=== PATIENT | male | born 1955 | race Caucasian/White ===

== ENCOUNTER → 2020-09-23 09:08 | Outpatient (BNVA) | payer BC, SELFPAY | PROVIDERS: Family Provider Internal Medicine; PCP Internal Medicine; Visit Provider Internal Medicine | DX: Z00.00 Encounter for general adult medical examination without abnormal findings (principal) | CPT/HCPCS: 80053; 80061; 83036; 84403; 85025; G0103 ==

== ENCOUNTER 2021-06-01 14:04 | Outpatient (CLI) | payer MEDICARE, BC, SELFPAY ==
[2021-06-01 14:20] VITALS: BP 160/87; PULSE 65; RESP 16; O2SAT 96
[2021-06-01 16:00] VITALS: BP 111/71; BP 139/80; PULSE 60; PULSE 83; RESP 16; TEMP 36.6; O2SAT 96; O2SAT 98
--- NOTE | 2021-06-11 14:51 | DCPLANNER ---
mental health program manager had message that patient received the monoclonal antibody infusion. mental health program manager spoke with patient he stated that before the infusion he lost his sense of taste and smell, he had a fever, and he had a cough and he had a really really runny nose. Patient stated that after the infusion he is feeling really good. Patient stated that he still does not have a lot of energy, he has not had a fever, and he has had not had a runny nose after the infusion. Patient stated that he could tell a difference with in 24 hours of the infusion.
== END 2021-06-01 14:05 | disposition home or self-care (01) ==
PROVIDERS: PCP Internal Medicine; Visit Provider Nurse Practitioner Family
DX: U07.1 COVID-19 (principal)
CPT/HCPCS: 96365

== ENCOUNTER → 2021-10-20 09:46 | Outpatient (BNVA) | payer MEDICARE, SELFPAY | PROVIDERS: PCP Internal Medicine; Visit Provider Internal Medicine | DX: Z00.00 Encounter for general adult medical examination without abnormal findings (principal); E78.5 Hyperlipidemia, unspecified | CPT/HCPCS: 80053; 80061; 83036; 84153; 84403 ==

== ENCOUNTER → 2021-12-16 09:25 | Outpatient (BNVA) | payer MEDICARE, BC, SELFPAY | PROVIDERS: PCP Internal Medicine; Referring Provider Internal Medicine; Visit Provider Orthopaedic Surgery | DX: M25.511 Pain in right shoulder (principal) | CPT/HCPCS: 73030 ==

== ENCOUNTER 2021-12-22 06:00 | Outpatient (RCR) | payer MEDICARE, BC, SELFPAY | END 2022-01-21 23:59 | disposition home or self-care (01) | LOC: SPT 06:00 | PROVIDERS: PCP Internal Medicine; Referring Provider Orthopaedic Surgery; Visit Provider Orthopaedic Surgery | DX: M67.814 Other specified disorders of tendon, left shoulder (principal) | CPT/HCPCS: 97110; 97162 ==

== ENCOUNTER 2022-01-22 06:00 | Outpatient (RCR) | payer MEDICARE, BC, SELFPAY | END 2022-02-20 23:59 | disposition home or self-care (01) | LOC: SPT 06:00 | PROVIDERS: PCP Internal Medicine; Referring Provider Orthopaedic Surgery; Visit Provider Orthopaedic Surgery | DX: M67.814 Other specified disorders of tendon, left shoulder (principal); M25.512 Pain in left shoulder | CPT/HCPCS: 97110 ==

== ENCOUNTER → 2022-04-01 10:18 | Outpatient (BNVA) | payer MEDICARE, BC, SELFPAY | PROVIDERS: PCP Internal Medicine; Visit Provider Internal Medicine | DX: R60.9 Edema, unspecified (principal); I50.9 Heart failure, unspecified; E78.5 Hyperlipidemia, unspecified; Z78.9 Other specified health status; I10 Essential (primary) hypertension | CPT/HCPCS: 80053; 84443; 85025 ==

== ENCOUNTER 2022-04-22 09:02 | Outpatient (CLI) | payer MEDICARE, BC, SELFPAY ==
--- NOTE | 2022-04-22 09:30 | USCV_ITS ---
Yordan Sherwood Age: 67 Gender: M : 1955 Exam Date: 04/22/2022 09:22 Ordering Phys: Juan Corado MD Technologist: JAH Exam Location: [facility] – [place] Indication: CHRONIC HEART FAILURE BP: 140 / 78 HR: 63 Rhythm: Sinus Technical Quality: Adequate MEASUREMENTS (Male / Female) Normal Values 2D ECHO LV Diastolic Diameter PLAX 6.4 cm 4.2 - 5.9 / 3.9 - 5.3 cm LV Systolic Diameter PLAX 3.8 cm IVS Diastolic Thickness 1.4 cm 0.6 - 1.0 / 0.6 - 0.9 cm IVS Systolic Thickness 1.8 cm LVPW Diastolic Thickness 1.3 cm 0.6 - 1.0 / 0.6 - 0.9 cm LVPW Systolic Thickness 2.4 cm LVOT Diameter 2.0 cm LV Ejection Fraction 2D Teich 70.1 % LV Ejection Fraction MOD 2C 53.9 % LV Ejection Fraction 2C AL 54.7 % LA Diameter 3.5 cm LA Width 3.8 cm LA Height 5.7 cm RA Width 3.5 cm RA Height 4.4 cm Aorta at Sinotubular Diameter 2.3 cm M-MODE Aortic Annulus Diameter 2.9 cm LA Ao Ratio MM 1.1 MV E Point Septal Separation 0.8 cm DOPPLER AV Peak Velocity 159.0 cm/s LVOT Peak Velocity 93.0 cm/s AV Area Cont Eq vti 1.7 cm squared AV Area Cont Eq pk 1.9 cm squared MV Peak Velocity 85.0 cm/s MV Area PHT 2.9 cm squared Mitral E to A Ratio 0.8 MV E' Velocity 34.5 cm/s Mitral E to MV E' Ratio 7.6 Mitral E to LV E' Lateral Ratio 7.0 Mitral E to LV E' Septal Ratio 8.2 TR Peak Velocity 248.4 cm/s TR Peak Gradient 24.7 mmHg TR Mean Velocity 217.5 cm/s TR Mean Gradient 19.4 mmHg TR Velocity Time Integral 91.5 cm TV Peak E Velocity 65.0 cm/s Right Atrial Pressure 8.0 mmHg Pulmonary Artery Systolic Pressu 32.7 mmHg PV Peak Velocity 140.0 cm/s RV Acceleration Time 0.1 s RV Ejection Time 0.3 s RV AcT/ET 0.3 FINDINGS Left Ventricle Normal left ventricular size, systolic function and wall thickness, with no regional wall motion abnormalities. Grade I/IV diastolic dysfunction (abnormal relaxation filling pattern), normal to mildly elevated filling pressures. Abnormal septal motion consistent with conduction abnormality. Left ventricular ejection fraction is estimated at 55 %. Right Ventricle Normal right ventricular size and systolic function. Normal right ventricular systolic pressure. Right Atrium The right atrium is normal in size. Left Atrium The left atrium is normal in size. Mitral Valve Structurally normal mitral valve without significant stenosis or prolapse. There is no mitral regurgitation. Aortic Valve Structurally normal aortic valve without significant sclerosis or stenosis. There is no aortic regurgitation. Tricuspid Valve Structurally normal tricuspid valve. Trace tricuspid valve regurgitation. Pulmonic Valve Pulmonic valve not well visualized. Pericardium Normal pericardium without effusion. Aorta Normal ascending aorta dimension. IVC The inferior vena cava pulmonary and hepatic veins appear normal. CONCLUSIONS Normal left ventricular size, systolic function and wall thickness, with no regional wall motion abnormalities. Grade I/IV diastolic dysfunction (abnormal relaxation filling pattern), normal to mildly elevated filling pressures. Abnormal septal motion consistent with conduction abnormality. Left ventricular ejection fraction is estimated at 55 %. Dr. Jesus Ochoa MD (Electronically Signed) Final Date: 22 April 2022 10:48 Amended: 24 April 2022 11:54 C
== END 2022-04-22 09:03 | disposition home or self-care (01) ==
LOC: RAD 09:03
PROVIDERS: PCP Internal Medicine; Visit Provider Internal Medicine
DX: R60.9 Edema, unspecified (principal)
CPT/HCPCS: 93306

== ENCOUNTER 2022-07-21 06:00 | Outpatient (RCR) | payer MEDICARE, BC, SELFPAY | END 2022-07-23 23:59 | disposition home or self-care (01) | LOC: SPT 06:00 | PROVIDERS: PCP Internal Medicine; Visit Provider Orthopaedic Surgery | DX: Z47.89 Encounter for other orthopedic aftercare (principal) | CPT/HCPCS: 97110; 97162 ==

== ENCOUNTER 2022-07-24 06:00 | Outpatient (RCR) | payer MEDICARE, BC, SELFPAY | END 2022-08-23 23:59 | disposition home or self-care (01) | LOC: SPT 06:00 | PROVIDERS: PCP Internal Medicine; Visit Provider Orthopaedic Surgery | DX: Z47.89 Encounter for other orthopedic aftercare (principal) | CPT/HCPCS: 97110; G0283 ==

== ENCOUNTER 2022-08-24 06:00 | Outpatient (RCR) | payer MEDICARE, BC, SELFPAY | END 2022-09-21 16:38 | disposition home or self-care (01) | LOC: SPT 06:00 | PROVIDERS: PCP Internal Medicine; Visit Provider Orthopaedic Surgery | DX: Z47.89 Encounter for other orthopedic aftercare (principal) | CPT/HCPCS: 93798; 97032; 97110 ==

== ENCOUNTER 2023-02-21 06:00 | Outpatient (RCR) | payer MEDICARE, BC, SELFPAY | END 2023-03-23 23:59 | disposition home or self-care (01) | LOC: SPT 06:00 | PROVIDERS: Visit Provider Orthopaedic Surgery | DX: M22.2X1 Patellofemoral disorders, right knee (principal) | CPT/HCPCS: 97110; 97161 ==

== ENCOUNTER 2023-03-24 11:34 | Outpatient (RCR) | payer MEDICARE, BC, SELFPAY | END 2023-04-06 23:59 | disposition home or self-care (01) | LOC: SPT 11:34 | PROVIDERS: Visit Provider Orthopaedic Surgery | DX: M22.2X1 Patellofemoral disorders, right knee (principal) | CPT/HCPCS: 97110 ==

== ENCOUNTER → 2023-07-26 13:54 | Outpatient (BNVA) | payer MEDICARE, BC, SELFPAY | PROVIDERS: PCP Internal Medicine; Visit Provider Dermatology | DX: L82.1 Other seborrheic keratosis (principal); D22.5 Melanocytic nevi of trunk; L81.4 Other melanin hyperpigmentation; L57.8 Other skin changes due to chronic exposure to nonionizing radiation; L82.0 Inflamed seborrheic keratosis; L57.0 Actinic keratosis | CPT/HCPCS: 17000; 17110; 99213 ==

== ENCOUNTER 2023-08-01 08:40 | Outpatient (RCR) | payer MEDICARE, BC, SELFPAY | END 2023-08-23 23:59 | disposition home or self-care (01) | LOC: SPT 08:40 | PROVIDERS: PCP Internal Medicine; Visit Provider Orthopaedic Surgery | DX: Z98.890 Other specified postprocedural states (principal) | CPT/HCPCS: 97110; 97161; G0283; L1812 ==

== ENCOUNTER 2023-08-24 06:00 | Outpatient (RCR) | payer MEDICARE, BC, SELFPAY | END 2023-09-22 23:59 | disposition home or self-care (01) | LOC: SPT 06:00 | PROVIDERS: PCP Internal Medicine; Visit Provider Orthopaedic Surgery | DX: Z47.89 Encounter for other orthopedic aftercare (principal) | CPT/HCPCS: 97110; G0283 ==

== ENCOUNTER 2023-09-23 06:00 | Outpatient (RCR) | payer MEDICARE, BC, SELFPAY | END 2023-10-23 23:59 | disposition home or self-care (01) | LOC: SPT 06:00 | PROVIDERS: PCP Internal Medicine; Visit Provider Orthopaedic Surgery | DX: Z98.890 Other specified postprocedural states (principal) | CPT/HCPCS: 97110; G0283 ==

== ENCOUNTER 2023-10-26 09:26 | Outpatient (RCR) | payer MEDICARE, BC, SELFPAY | END 2023-11-23 23:59 | disposition home or self-care (01) | LOC: SPT 09:26 | PROVIDERS: PCP Internal Medicine; Visit Provider Orthopaedic Surgery | DX: M17.0 Bilateral primary osteoarthritis of knee (principal) | CPT/HCPCS: 97110; 97161 ==

== ENCOUNTER 2024-01-13 11:23 | Outpatient (RCR) | payer MEDICARE, BC, SELFPAY | END 2024-01-22 23:59 | disposition home or self-care (01) | LOC: SPT 11:23 | PROVIDERS: PCP Internal Medicine; Visit Provider Orthopaedic Surgery | DX: Z98.890 Other specified postprocedural states (principal); M25.562 Pain in left knee | CPT/HCPCS: 97110; 97161 ==

== ENCOUNTER 2024-01-23 06:00 | Outpatient (RCR) | payer MEDICARE, BC, SELFPAY | END 2024-02-21 23:59 | disposition home or self-care (01) | LOC: SPT 06:00 | PROVIDERS: PCP Internal Medicine; Visit Provider Orthopaedic Surgery | DX: Z47.89 Encounter for other orthopedic aftercare (principal); M25.562 Pain in left knee | CPT/HCPCS: 97110 ==

== ENCOUNTER 2024-06-07 08:22 | Outpatient (RCR) | payer MEDICARE, BC, SELFPAY | END 2024-06-23 23:59 | disposition home or self-care (01) | LOC: SPT 08:22 | PROVIDERS: PCP Internal Medicine; Visit Provider Orthopaedic Surgery | DX: M17.11 Unilateral primary osteoarthritis, right knee (principal); Z96.651 Presence of right artificial knee joint | CPT/HCPCS: 97110; 97161 ==

== ENCOUNTER 2024-06-24 06:00 | Outpatient (RCR) | payer MEDICARE, BC, SELFPAY | END 2024-07-23 23:59 | disposition home or self-care (01) | LOC: SPT 06:00 | PROVIDERS: PCP Internal Medicine; Visit Provider Orthopaedic Surgery | DX: Z47.1 Aftercare following joint replacement surgery (principal); Z96.651 Presence of right artificial knee joint; M17.11 Unilateral primary osteoarthritis, right knee | CPT/HCPCS: 97110; G0283 ==

== ENCOUNTER 2024-07-24 06:00 | Outpatient (RCR) | payer MEDICARE, BC, SELFPAY | END 2024-08-23 23:59 | disposition home or self-care (01) | LOC: SPT 06:00 | PROVIDERS: PCP Internal Medicine; Visit Provider Orthopaedic Surgery | DX: M17.11 Unilateral primary osteoarthritis, right knee (principal); Z96.651 Presence of right artificial knee joint | CPT/HCPCS: 97110; G0283 ==

== ENCOUNTER → 2024-07-26 13:17 | Outpatient (BNVA) | payer MEDICARE, BC, SELFPAY | PROVIDERS: PCP Internal Medicine; Visit Provider Nurse Practitioner Family | DX: L57.0 Actinic keratosis (principal); L81.4 Other melanin hyperpigmentation; D22.5 Melanocytic nevi of trunk; L82.1 Other seborrheic keratosis; S60.012A Contusion of left thumb without damage to nail, initial encounter; X58.XXXA Exposure to other specified factors, initial encounter; L57.8 Other skin changes due to chronic exposure to nonionizing radiation | CPT/HCPCS: 17000; 99213 ==

== ENCOUNTER 2024-08-24 06:00 | Outpatient (RCR) | payer MEDICARE, BC, SELFPAY | END 2024-09-22 23:59 | disposition home or self-care (01) | LOC: SPT 06:00 | PROVIDERS: PCP Internal Medicine; Visit Provider Orthopaedic Surgery | DX: M17.11 Unilateral primary osteoarthritis, right knee (principal); Z96.651 Presence of right artificial knee joint | CPT/HCPCS: 97110 ==

== ENCOUNTER 2024-09-23 06:00 | Outpatient (RCR) | payer MEDICARE, BC, SELFPAY | END 2024-10-10 23:59 | disposition home or self-care (01) | LOC: SPT 06:00 | PROVIDERS: PCP Internal Medicine; Visit Provider Orthopaedic Surgery | DX: M17.11 Unilateral primary osteoarthritis, right knee (principal); Z47.1 Aftercare following joint replacement surgery; Z96.651 Presence of right artificial knee joint | CPT/HCPCS: 97110 ==

== ENCOUNTER → 2025-02-28 13:27 | Outpatient (BNVA) | payer MEDICARE, OTHER, SELFPAY | PROVIDERS: PCP Internal Medicine; Visit Provider Internal Medicine Cardiovascular Disease | DX: R07.9 Chest pain, unspecified (principal); R06.02 Shortness of breath | CPT/HCPCS: 36415; 80048; 93005 ==

== ENCOUNTER 2025-04-05 06:17 | Outpatient (CLI) | payer MEDICARE, OTHER, SELFPAY ==
--- NOTE | 2025-04-05 06:15 | USCV_ITS ---
Yordan Sherwood Age: 70 Gender: M : 1955 Exam Date: 04/05/2025 06:33 Ordering Phys: Bobby Lamar MD ([email or web address]) Technologist: Onofre Castaneda Exam Location: [facility] – [place] Indication: chf, chest pain BP: 136 / 78 HR: 64 Rhythm: Sinus Technical Quality: Adequate MEASUREMENTS (Male / Female) Normal Values 2D ECHO LV Diastolic Diameter PLAX 4.5 cm 4.2 - 5.9 / 3.9 - 5.3 cm IVS Diastolic Thickness 1.4 cm 0.6 - 1.0 / 0.6 - 0.9 cm IVS Systolic Thickness 1.1 cm LVPW Diastolic Thickness 2.2 cm 0.6 - 1.0 / 0.6 - 0.9 cm LVPW Systolic Thickness 2.4 cm LVOT Diameter 2.0 cm LV Ejection Fraction 2D Teich 24.7 % LV Ejection Fraction MOD 4C 40.1 % LV Ejection Fraction MOD 2C 50.1 % LV Ejection Fraction 2C AL 48.7 % LA Diameter 3.5 cm RA Systolic Volume 4C AL 48.8 ml RA Systolic Volume 4C MOD 42.3 ml LA Sys Volume AL 43.8 cm cubed LA Sys Volume Index AL 19.1 cm cubed/m squared Aorta at Sinotubular Diameter 2.2 cm IVC Diameter 2.0 cm M-MODE LA Ao Ratio MM 1.5 AV Cusp Separation MM 1.3 cm DOPPLER AV Peak Velocity 146.3 cm/s LVOT Peak Velocity 87.0 cm/s AV Area Cont Eq vti 2.0 cm squared AV Area Cont Eq pk 2.0 cm squared MV Peak Velocity 84.0 cm/s MV Area PHT 5.1 cm squared Mitral E to A Ratio 0.7 TR Peak Velocity 329.0 cm/s TR Peak Gradient 43.3 mmHg TR Mean Velocity 259.0 cm/s TR Mean Gradient 28.9 mmHg TR Velocity Time Integral 77.7 cm PV Peak Velocity 175.3 cm/s FINDINGS Left Ventricle Moderately increased left ventricular cavity size. Moderately decreased left ventricular systolic function. Global left ventricular hypokinesis. Left ventricular ejection fraction is estimated at 40 %. Global left ventricular hypokinesis. Grade I/IV diastolic dysfunction (abnormal relaxation filling pattern), normal to mildly elevated filling pressures. Right Ventricle The right ventricle is normal in size and function. Right Atrium The right atrium is normal in size. Left Atrium The left atrium is normal in size. Mitral Valve Mildly thickened mitral valve. No mitral valve stenosis. Trace mitral valve regurgitation. Aortic Valve Moderate aortic valve calcification. No aortic valve stenosis. Trace aortic valve regurgitation. Tricuspid Valve Structurally normal tricuspid valve without significant stenosis or regurgitation. Pulmonary artery systolic pressure is normal. Pulmonic Valve Structurally normal pulmonic valve without significant stenosis. There is no pulmonic regurgitation. Pericardium Normal pericardium without effusion. Aorta Normal ascending aorta dimension. IVC The inferior vena cava appears normal. CONCLUSIONS Moderately increased left ventricular cavity size. Moderately decreased left ventricular systolic function. Global left ventricular hypokinesis. Left ventricular ejection fraction is estimated at 40 %. Global left ventricular hypokinesis. Grade I/IV diastolic dysfunction (abnormal relaxation filling pattern), normal to mildly elevated filling pressures. No significant valve abnormalities. There is no pericardial effusion. Right atrial pressure is around 5 mm of mercury. Bobby Lamar MD (Electronically Signed) Final Date: 25 April 2025 15:31 S
== END 2025-04-05 06:18 | disposition home or self-care (01) ==
PROVIDERS: PCP Internal Medicine; Visit Provider Internal Medicine Cardiovascular Disease
DX: I50.9 Heart failure, unspecified (principal); R07.9 Chest pain, unspecified; R06.02 Shortness of breath; R93.1 Abnormal findings on diagnostic imaging of heart and coronary circulation; I05.9 Rheumatic mitral valve disease, unspecified; I35.8 Other nonrheumatic aortic valve disorders
CPT/HCPCS: 93306

== ENCOUNTER → 2025-06-19 08:34 | Outpatient (BNVA) | payer MEDICARE, OTHER, SELFPAY | PROVIDERS: PCP Internal Medicine; Visit Provider Student in an Organized Health Care Education/Training Program | DX: M79.642 Pain in left hand (principal); M65.322 Trigger finger, left index finger; M65.332 Trigger finger, left middle finger; M65.342 Trigger finger, left ring finger | CPT/HCPCS: 73130; 99204 ==

== ENCOUNTER 2025-07-05 09:49 | Day surgery (SDC) | payer MEDICARE, OTHER, SELFPAY ==
[2025-07-05 10:03] VITALS: BMI 34.8
--- NOTE | 2025-07-05 10:19 | W.PM.OPSUD ---
Surgery/Procedure H&P Update DATE OF PROCEDURE: July 05, 2025 DATE H&P PERFORMED: 06/19/25 H&P UPDATE INFORMATION: I have reviewed H&P completed within last 30 days, I have examined patient prior to procedure and No changes to prior documentation PREOP DIAGNOSIS: Left index, middle, ring finger triggers PRIMARY INDICATION FOR PROCEDURE: Left index, middle, ring finger triggers PLANNED PROCEDURE: Operation Date: 07/05/25 11:30 Proposed Procedures p LEFT Index Finger, LEFT Middle Finger, LEFT Ring Finger Trigger Finger Release(Left) - Leo Calderon DO
--- NOTE | 2025-07-05 10:19 | ANES.PREANE2 ---
Pre-Anesthetic Assessment Height/Weight: Height 1.75 m Weight 107.048 kg O2 Del Method Room Air 07/05/25 10:03 Operation Date: 07/05/25 11:30 Proposed Procedures p LEFT Index Finger, LEFT Middle Finger, LEFT Ring Finger Trigger Finger Release(Left) - Leo Kvng, DO Familial anesthetic complications: None Was Beta Zahra taken within 24 hours: N/A Was Clonidine taken within 24 hours: N/A Last intake: Intake Last Liquid Date 07/04/25 Last Liquid Time 23:00 Last Solid Date 07/04/25 Last Solid Time 23:00 Social No alcohol and No tobacco Exam alert, oriented x 3, clear to auscultation bilaterally and regular rate & rhythm Airway Mallampati: Class II Dentition: full Pulmonary Sleep Apnea CV/HEM Congestive Heart Failure and Hypertension LBBB GI Gastroesophageal Reflux Disease Metabolic Hyperlipidemia and Morbid Obesity Anesthetic Plan ASA status: 3 Anesthesia: MAC Risk of > 500 ml blood loss (7ml/kg in children): No Medications/Allergies Home Medications ?Medication ?Instructions ?Recorded ?Confirmed ?Last Taken ?Type tamsulosin 0.4 mg capsule (Flomax) 0.4 mg PO DAILY #90 caps 02/17/22 07/05/25 07/04/25 Rx pantoprazole 40 mg tablet,delayed 40 mg PO DAILY #90 tabs 08/19/22 07/05/25 07/04/25 Rx release aspirin 81 mg tablet,delayed 81 mg PO DAILY 02/28/25 07/05/25 2 Days Ago History release ~07/03/25 empagliflozin 10 mg tablet 10 mg PO DAILY 07/04/25 07/05/25 07/04/25 History (Jardiance) furosemide 20 mg tablet 20 mg PO DAILY 07/04/25 07/05/25 07/04/25 History potassium chloride 20 mEq 20 meq PO DAILY 07/04/25 07/05/25 07/04/25 History tablet,extended release sacubitril 49 mg-valsartan 51 mg 0.5 tab PO BID 07/04/25 07/05/25 07/04/25 History tablet (Entresto) Allergies Allergy/AdvReac Type Severity Reaction Status Date / Time No Known Allergies Allergy Verified 07/05/25 10:01 [facility] Anesthesia Medical History CHF (congestive heart failure) Left bundle branch block Family History Father Heart disease Social History Smoking and tobacco/nicotine status: never used tobacco/nicotine Alcohol intake: current Alcohol intake frequency: holidays/special occasions only Marital status: Number of children: 2 service: No Data Anesthesia Cardiac Studies: Echocardiogram 04/05/25
[2025-07-05] MEDS: acetaminophen 1,000 MG/100 ML PIGGYBACK 400 MG IV (10:28)
[2025-07-05] MEDS: ceFAZolin 2,000 MG in sodium chloride 0.9% (plus) 50 ML 100 MG IV (10:35)
[2025-07-05] MEDS: ROPivacaine 0.5% SDV 30 mL 150 MG INJECTION (11:02)
--- NOTE | 2025-07-05 11:12 | W.PM.BPON ---
Date of Procedure: 07/05/2025 Surgeon: Leo Calderon DO Health Concierge(s): none Procedure(s) performed: Left index finger trigger release Left middle finger trigger release Left ring finger trigger release Findings of the procedure(s): Underwent procedure as planned without issues or complications taken recovery in stable condition Estimated blood loss: 5 mL Specimen(s) removed: None Post-operative diagnosis: Left index, middle, ring finger trigger
--- NOTE | 2025-07-05 11:13 | P.OP_ITS ---
Operative Report Date of procedure: July 05, 2025 Surgeon: Leo Calderon DO Procedure: Preoperative diagnosis: Left index finger trigger Left middle finger trigger Left ring finger trigger Post-op diagnosis: Same Procedure done: Left index finger trigger release Left middle?finger?trigger?release Left ring finger trigger release Surgeon: Leo Calderon DO Estimated blood loss: 5cc Tourniquet time 11mins Complications: None Condition: stable Disposition: same day Brief History: Patient's been seen and worked up in the outpatient setting and findings consistent with preoperative diagnosis of Left index, middle, ring?finger?triggers.? He is failed conservative treatment.? Continues to have mechanical locking and catching.? Severe pain as well.? We talked about treatment options nonoperative versus operative intervention.? ?Patient understands the risk benefits complication alternatives of surgical nonsurgical treatment options.? Understanding his risks with surgery he elects proceed with surgical intervention.? Consent obtained in the preoperative holding area for left index, middle, ring finger trigger releases..? Here today to proceed with surgical intervention.? All questions answered. Procedure: Patient was seen and evaluated in the preoperative holding area.? Consent was reviewed and signed with patient.? Seen evaluated by Anesthesia Department.? Once cleared for surgery was brought back to the operative suite.? Placed in supine position on the OR table all bony prominences well-padded patient properly secured to the bed.? Patient's Left arm was then placed to the ar mboard.? A nonsterile tourniquet applied to the Left upper arm.? Patient's Left upper extremity was then prepped and draped in standard orthopedic fashion.? Final timeout performed.? Patient received appropriate preoperative antibiotics. Esmarch tourniquet was used exsanguinate the Left upper extremity tourniquet insufflated to 250 mmHg. Under sterile aseptic technique local digital block was performed to the Left index, middle, ring fingers.? Once appropriately anesthetized a standard oblique incision was made centering over the A1 jackie following patient's flexor crease to each of patient's individual digits including the index middle and ring. For each finger? Sharp scalpel incision was made only through skin and then switched to Littler dissection scissors and spread longitudinally directly over the flexor tendon sheath.? I then mobilized both radially and ulnarly and Kasdan retractors were used and placed by my neurosurgical physician assistant to protect neurovascular bundle.? Next I visualized the A1 jackie and this was incised with a scalpel.? I then switched to dissection scissors and released the A1 jackie both proximally as well as distally to its entirety.? Significant tendon sheath fluid was noted consistent with inflammation.? Mild fraying of the flexor tendons noted but no tear.? At this point I utilized a rag nail and pulled the tendons FDS and FDP out of the incision and no?triggering was noted.? Once again this was performed on each of the fingers of the index and the middle and the ring finger and the FDS and FDP tendons were pulled and had smooth range of motion. I then had anesthesia wake up the patient and patient was able to actively flex and extend with no?triggering.? This point thorough irrigation was performed.? Tourniquet deflated hemostasis satisfactory with bipolar.? I then subsequently closed the incision with interrupted nylon suture.? Xeroform 4 x 4's, Kerlix and an Greg wrap was applied for a bulky soft dressing.? Patient was then subsequently awakened from anesthesia and taken to PACU in stable condition tolerated procedure without issues. Disposition: Patient taken back in stable condition recovering well.? Patient will receive appropriate discharge instruction as well as pain medication postoperatively.? Patient to follow-up with Ortho in the office in 2 weeks for repeat evaluation and incision check.? Patient understands that any questions or concerns and contact the office.? All questions answered.
[2025-07-05 11:24] VITALS: BP 126/58; PULSE 62; RESP 16; TEMP 36.3; O2SAT 94
[2025-07-05 11:29] VITALS: BP 118/67; PULSE 58; RESP 16; O2SAT 95
[2025-07-05 11:34] VITALS: BP 135/74; PULSE 57; RESP 16; O2SAT 95
[2025-07-05 11:39] VITALS: BP 149/65; PULSE 59; RESP 16; O2SAT 95
[2025-07-05 11:44] VITALS: BP 168/73; PULSE 57; RESP 16; TEMP 36.4; O2SAT 96
[2025-07-05 12:10] VITALS: BP 140/82; PULSE 56; RESP 16; O2SAT 97
--- NOTE | 2025-07-05 12:10 | ANE.PACU2 ---
Inpatient post-anesthesia follow up: Airway intact: Yes Vital signs: Temperature 97.6 F Pulse Rate 56 Respiratory Rate 16 Blood Pressure 140/82 Pulse Oximetry 97 Oxygen Delivery Me thod Room Air Oxygen Flow Rate Fraction of Inspir ed Oxygen Hydration adequate: Yes Nausea and vomiting: No Pain level: 1 Mental status: Baseline
== END 2025-07-05 12:10 | disposition home or self-care (01) ==
PROVIDERS: PCP Internal Medicine; Visit Provider Student in an Organized Health Care Education/Training Program
PROC: (CPT 26055; principal; 2025-07-05 11:20)
DX: M65.322 Trigger finger, left index finger (principal); M65.332 Trigger finger, left middle finger; M65.342 Trigger finger, left ring finger; I11.0 Hypertensive heart disease with heart failure; I50.9 Heart failure, unspecified; G47.30 Sleep apnea, unspecified; K21.9 Gastro-esophageal reflux disease without esophagitis; E78.5 Hyperlipidemia, unspecified; E66.01 Morbid (severe) obesity due to excess calories; Z68.34 Body mass index [BMI] 34.0-34.9, adult; Z79.82 Long term (current) use of aspirin; I44.7 Left bundle-branch block, unspecified
CPT/HCPCS: 26055 ×3; J0131; J0690; J1100; J1885; J2405; J2704; J2795; J3010; J7030; J9999

== ENCOUNTER → 2025-07-19 08:25 | Outpatient (BNVA) | payer MEDICARE, OTHER, SELFPAY | PROVIDERS: PCP Internal Medicine; Visit Provider Physician Assistant | DX: Z98.890 Other specified postprocedural states (principal) | CPT/HCPCS: 99024 ==

== ENCOUNTER → 2025-07-29 08:49 | Outpatient (BNVA) | payer MEDICARE, OTHER, SELFPAY | PROVIDERS: PCP Internal Medicine; Visit Provider Nurse Practitioner Family | DX: L82.1 Other seborrheic keratosis (principal); D18.01 Hemangioma of skin and subcutaneous tissue; L57.8 Other skin changes due to chronic exposure to nonionizing radiation; B07.8 Other viral warts; R20.8 Other disturbances of skin sensation; L53.8 Other specified erythematous conditions; L82.0 Inflamed seborrheic keratosis; D48.5 Neoplasm of uncertain behavior of skin; L57.0 Actinic keratosis | CPT/HCPCS: 11102; 17000; 17110; 99213 ==